=== PATIENT | female | born 1960 | race Caucasian/White ===

== ENCOUNTER 2024-03-14 20:44 | Emergency (ER) | payer SELFPAY ==
[2024-03-14 20:46] VITALS: BP 162/97
--- NOTE | 2024-03-14 20:55 | ED.GENMED ---
History of Present Illness
General
Chief Complaint: CODE
Source: family
Time Seen by Provider: 03/14/24 20:53
History of Present Illness
History of Present Illness:
See MDM
Past History
Past History
ED Past Medical History: Arrthythmia, CAD, GERD, HTN and Other (Migraines)
ED Past Surgical History: Other (ENT)
Social History
Tobacco: Smoker
Alcohol: None
Personal:
Living: with family
Employment: Employed
Phy Exam
Physical Exam
Physical Exam:
See MDM
Course
Vital Signs
Initial and Last Documented VS:
Initial Vital Signs
BP
162/97
03/14/24 20:46
Last Documented Vital Signs
BP
162/97
03/14/24 20:46
MDM/Problems Addressed
Differential Diagnosis Includes:
HPI and MDM Narrative:
63-year-old female presenting as a prearrival cardiac arrest. EMS stating that family noted that she was complaining of heartburn all day. She collapsed and had seizure-like activity. There were initially called out for seizure activity but noted
that she had no pulses. EMS stating that she has been in PEA and asystole arrest. They intubation and 6 doses of epinephrine and 1 dose of bicarb. On arrival to the emergency department, patient was on the Meet CPR machine and they have been
performing high-quality CPR for approximately 45 minutes come to the emergency department. On arrival, patient has evidence of mottling and fixed and dilated pupils. No pulses were obtained. CPR was continued. Patient was intubated. Lungs clear
with bagging. Due to the prolonged downtime and bedside echocardiogram showing no cardiac activity, time of was called at 8:49 PM
Physical exam
General: Lifeless, mottled skin, no pulses, GCS 3
HEENT: Not protecting airway. Pupils fixed and dilated
Neck: appears supple
CV: evidence of cyanosis. No carotid or femoral pulses palpated
Resp: Lungs clear to bagging
Abd: Non-distended
Extremities: No deformities
Neuro: GCS 3
Psych: Flat affect
Skin: Cool and mottled
Problems Addressed including Acute and Chronic Conditions affecting care:
1. Cardiac arrest
Acuity: acute
Prognosis: unstable
Details: Given the prolonged CPR and no pulses despite multiple rounds of CPR/epinephrine and no cardiac activity on bedside echocardiogram, time of called at 8:49 PM
Updates
9:15 PM Case discussed with medical receptionist Mariela Fritz who released patient
9:40 PM family at bedside. Had a long discussion with family. They indicated she has had heartburn throughout the day. They also indicate that patient is very private with her medical issues and not sure she if she is compliant.
Differential Diagnosis (but not limited to): Cardiac arrest, respiratory arrest, V-fib, NH, PE
Testing considered: CT head but patient never regained a pulse
Drug therapy (if applicable): OTC meds, please see d/c instruction regarding Rx drugs
Amount and/or Complexity of Data Reviewed
Clinical info obtained from: EMS
External data reviewed: N/A
Labs I independently reviewed (but not limited to): N/A
Radiology: N/A
Pulse Ox: not hypoxic
EKG independently reviewed: Rhythm strip shows asystole
Branch Associate Teller: Asystole
Critical Care: The high probability of a clinically significant, sudden or life threatening deterioration of the cardiovascular system(s) required my full and direct attention, intervention and personal management. The aggregate critical care time
was 20 minutes. This time is in addition to time spent performing reported procedures but includes the following:
[x] Data Review and interpretation
[x] Patient assessment and monitoring of vital signs
[x] Documentation
[x] Medication orders and management
Risk of Complication:
Social Determinants of health: Good social support
Discussed with other providers: N/A
Escalation of Care includes Admit/Obs: Despite high-quality ACLS, time of called at 8:49 PM
Occasional wrong word or 'sound a like' substitutions may have occurred due to the inherent limitations of voice recognition software. Read the chart carefully and recognize, using context, where substitutions have occurred.
*Critical Care Note
Total Time (30-74mins, 75-104mins- exclusive of procedures): 20 min
ED Attending Note
-
Portions of this chart may have been created with voice recognition software.� Occasional wrong word or��sound alike� substitutions may have occurred due to the inherent limitations of voice recognition software.
Discharge Plan
Departure
Patient Disposition:
Date of Disposition: 03/14/24
Time of Disposition: 21:11
Discharge Problem:
Cardiac arrest
Prescriptions:
No Action
metoprolol succinate 50 MG tablet extended release 24 hr
50 mg PO BID Qty: 60 0RF
lisinopril 10 MG tablet
10 mg PO BID Qty: 60 0RF
pantoprazole 40 MG tablet,delayed release (DR/EC)
40 mg PO BID Qty: 60 0RF
aspirin [Ecotrin Low Strength] 81 MG tablet,delayed release (DR/EC)
81 mg PO DAILY Qty: 30 0RF
ferrous sulfate [Feosol] 325 MG tablet
325 mg PO BID Qty: 60 0RF
atorvastatin [Lipitor] 80 MG tablet
80 mg PO HS Qty: 30 0RF
Referrals:
NONE,* [Family Provider] -
Interventions
Interventions:
*Risk Screen - Suicide Last Done: 03/14/24 20:46
*General Assessment Last Done: 03/14/24 20:46
*Neglect/Abuse Screening Last Done: 03/14/24 20:46
*Nursing Disposition Last Done: 03/14/24 21:03
Discharge Date and Time
Print Language: FAROESE
== END 2024-03-14 23:16 | disposition expired ==
LOC: EMR 20:44
PROVIDERS: EMERGENCY PHYSICIAN Student in an Organized Health Care Education/Training Program
DX: I46.9 Cardiac arrest, cause unspecified (principal)
CPT/HCPCS: 99285; 92950